=== PATIENT | female | born 1970 | race Caucasian/White ===

== ENCOUNTER 2022-01-28 01:24 | Day surgery (SDC) | payer MEDICARE, SELFPAY ==
[2022-01-21 11:10] VITALS: BMI 28.0
--- NOTE | 2022-01-27 15:20 | PM.HPGS ---
History of Present Illness History of Present Illness Consent: Risks, benefits, and alternatives have been discussed and questions answered. Patient agrees to proceed with procedure. Chief complaint: neoplasm screening, GERD Narrative: Rosana Rangel is a 51 year old female Who has been taking omeprazole for about 30 years and in fact is using it twice a day.? She recalls initially she was placed on it because she was found to have an ulcer. ? her most recent symptoms are the fact that she will at times regurgitate food even hours after she has ingested it.? Also, she has been having burning pain that will come on suddenly in the upper substernal area or in the back of her throat.? This can be severe and will gradually subside.? Sometimes drinking something like milk will help it.? She has occasional dysphagia, mainly for dry foods that seem to hang up on the way down.?? she has never had a colonoscopy. Review of Systems Review of Systems: All systems reviewed & are unremarkable except as noted in HPI and below PMFSH Past Medical History Medical History Anemia Clotting disorder Degenerative joint disease of knee Effusion of knee GERD (gastroesophageal reflux disease) HLD (hyperlipidemia) HTN (hypertension) Hypothyroidism Left knee pain Osteoporosis Peripheral vascular disease Rheumatoid arthritis Right knee pain SOB (shortness of breath) on exertion Wears glasses Surgical History Surgical History History of femoropopliteal bypass Family History Family History Other Arthritis Breast cancer Cerebrovascular accident Depression Diabetes mellitus HLD (hyperlipidemia) Hypertension Lung cancer Neuropathy Ovarian cancer Testicular cancer Social History Social History Smoking status: Never smoker Alcohol intake: never Substance use: never Substance use type: does not use Living arrangements: with family Gender identity (if verbalized by the patient): Female Spiritual care concerns: No Meds Home Medications and Allergies Home Medications Medication Instructions Recorded Confirmed Type losartan 25 mg tablet 25 mg PO DAILY 11/30/21 01/21/22 History atorvastatin 10 mg PO DAILY 12/15/21 01/21/22 History cholecalciferol (vitamin D3) 1,250 1,250 mcg PO WEEKLY 12/15/21 01/21/22 History mcg (50,000 unit) capsule hydroxychloroquine 200 mg tablet 200 mg PO BID 12/15/21 01/21/22 History metformin 500 mg PO BID 12/15/21 01/21/22 History metoprolol succinate 25 mg PO DAILY 12/15/21 01/21/22 History omeprazole 40 mg PO BID 12/15/21 01/21/22 History prednisone 5 mg tablet 5 mg PO .prn PRN FLARE UPS 12/15/21 01/21/22 History rivaroxaban 20 mg tablet (Xarelto) 20 mg PO DAILY 12/15/21 01/21/22 History semaglutide [Ozempic] 0.5 mg subcut WEEKLY 12/15/21 01/21/22 History amitriptyline 25 mg tablet 75 mg PO HS 01/21/22 01/21/22 History aspirin 81 mg tablet 81 mg PO DAILY 01/21/22 01/21/22 History calcium carbonate 600 mg-vitamin 1 tablet PO TID 01/21/22 01/21/22 History D3 10 mcg (400 unit) tablet (Calcium with Vitamin D) conj estrogen-medroxyprogesterone 1 tablet PO DAILY 01/21/22 01/21/22 History 0.3 mg-1.5 mg tablet (Prempro) gabapentin 300 mg capsule See Rx Instructions .Route .COMPLEX 01/21/22 01/21/22 History levothyroxine 112 mcg tablet 112 mcg PO DAILY 01/21/22 01/21/22 History multivitamin with minerals-folic 1 tablet PO DAILY 01/21/22 01/21/22 History acid 0.4 mg tablet Allergies Allergy/AdvReac Type Severity Reaction Status Date / Time infliximab [From Remicade] Allergy Intermediate Rash Verified 01/28/22 06:56 abatacept [From Orencia] Allergy drops b/p Verified 01/28/22 06:56 leflunomide [From Arava] Allergy Rash Verified 01/28/22 06:56 Exam Const: G
[2022-01-28 06:57] VITALS: BP 128/83; PULSE 101; RESP 16; TEMP 36.1; O2SAT 100; BMI 24.2
[2022-01-28] MEDS: LACTATED RINGERS 1,000 ML 150 ML IV CONT (07:11)
[2022-01-28 07:39] LABS: Glucose Point of Care 93 mg/dl (65-105)
--- NOTE | 2022-01-28 07:59 | WPDANESEPPF ---
Anes - Initial Pre Proc Eval Procedure: Operation Date: 01/28/22 08:00 Proposed Procedures p Esophagogastroduodenoscopy & Screening Colonoscopy - Talib Hale MD Date/Time: 01/28/22 07:59 Surgeon: Talib Hale MD Pre Op Diagnosis: neoplasm screening, GERD Patient Data Age: 51 Gender: F Height: 1.75 m Weight: 74.4 kg Last Vital Signs Temp 97 F L 01/28/22 06:57 Pulse 101 H 01/28/22 06:57 Resp 16 01/28/22 06:57 BP 128/83 01/28/22 06:57 Pulse Ox 100 01/28/22 06:57 O2 Del Method Room Air 01/28/22 06:57 Allergies Allergy/AdvReac Type Severity Reaction Status Date / Time infliximab [From Remicade] Allergy Intermediate Rash Verified 01/28/22 06:56 abatacept [From Orencia] Allergy drops b/p Verified 01/28/22 06:56 leflunomide [From Arava] Allergy Rash Verified 01/28/22 06:56 Home Medications Medication Instructions Recorded Confirmed Type losartan 25 mg tablet 25 mg PO DAILY 11/30/21 01/21/22 History atorvastatin 10 mg PO DAILY 12/15/21 01/21/22 History cholecalciferol (vitamin D3) 1,250 1,250 mcg PO WEEKLY 12/15/21 01/21/22 History mcg (50,000 unit) capsule hydroxychloroquine 200 mg tablet 200 mg PO BID 12/15/21 01/21/22 History metformin 500 mg PO BID 12/15/21 01/21/22 History metoprolol succinate 25 mg PO DAILY 12/15/21 01/21/22 History omeprazole 40 mg PO BID 12/15/21 01/21/22 History prednisone 5 mg tablet 5 mg PO .prn PRN FLARE UPS 12/15/21 01/21/22 History rivaroxaban 20 mg tablet (Xarelto) 20 mg PO DAILY 12/15/21 01/21/22 History semaglutide [Ozempic] 0.5 mg subcut WEEKLY 12/15/21 01/21/22 History amitriptyline 25 mg tablet 75 mg PO HS 01/21/22 01/21/22 History aspirin 81 mg tablet 81 mg PO DAILY 01/21/22 01/21/22 History calcium carbonate 600 mg-vitamin 1 tablet PO TID 01/21/22 01/21/22 History D3 10 mcg (400 unit) tablet (Calcium with Vitamin D) conj estrogen-medroxyprogesterone 1 tablet PO DAILY 01/21/22 01/21/22 History 0.3 mg-1.5 mg tablet (Prempro) gabapentin 300 mg capsule See Rx Instructions .Route .COMPLEX 01/21/22 01/21/22 History levothyroxine 112 mcg tablet 112 mcg PO DAILY 01/21/22 01/21/22 History multivitamin with minerals-folic 1 tablet PO DAILY 01/21/22 01/21/22 History acid 0.4 mg tablet Laboratory Tests 01/28/22 07:10 POC Capillary Glucose 93 mg/dl mg/dl (65-105) Patient hx anesthesia problems: none Family hx anesthesia problems: none Results Review: All pre-operative results and documents have been reviewed as part of the pre-operative evaluation. [facility] Past Medical History Medical History Anemia Clotting disorder Degenerative joint disease of knee Effusion of knee GERD (gastroesophageal reflux disease) HLD (hyperlipidemia) HTN (hypertension) Hypothyroidism Left knee pain Osteoporosis Peripheral vascular disease Rheumatoid arthritis Right knee pain SOB (shortness of breath) on exertion Wears glasses Surgical History Surgical History History of femoropopliteal bypass Family History Family History Other Arthritis Breast cancer Cerebrovascular accident Depression Diabetes mellitus HLD (hyperlipidemia) Hypertension Lung cancer Neuropathy Ovarian cancer Testicular cancer Social History Social History Smoking status: Never smoker Alcohol intake: never Substance use: never Substance use type: does not use Living arrangements: with family Gender identity (if verbalized by the patient): Female Spiritual care concerns: No Anes - Eval Final PreProcedure Day of Procedure 01/28/22 07:59 Patient weight: normal Heart: regular rate and rhythm Lungs: clear to auscultation Airway: Mallampati scale class II Neurological: alert and oriented Last oral intake: >/
--- NOTE | 2022-01-28 08:38 | SUR.OPER ---
EGD START 809, END 813 COLONOSCOPY START 822, END 835
[2022-01-28 08:39] VITALS: BP 87/63; PULSE 82; RESP 22; O2SAT 95
[2022-01-28 08:49] VITALS: BP 88/57; PULSE 80; RESP 21; O2SAT 95
[2022-01-28 08:53] VITALS: BP 104/63; PULSE 83; RESP 20; O2SAT 100
== END 2022-01-28 09:19 | disposition home or self-care (01) ==
PROVIDERS: PCP Family Medicine; Visit Provider Internal Medicine Gastroenterology
PROC: 0DJ08ZZ Inspection of Upper Intestinal Tract, Via Natural or Artificial Opening Endoscopic (ICD-10-PCS; CPT 43235; principal; 2022-01-28 08:00)
DX: Z12.11 Encounter for screening for malignant neoplasm of colon (principal); K62.1 Rectal polyp; K64.8 Other hemorrhoids; K21.9 Gastro-esophageal reflux disease without esophagitis; K44.9 Diaphragmatic hernia without obstruction or gangrene; K31.7 Polyp of stomach and duodenum; Z79.01 Long term (current) use of anticoagulants; Z79.82 Long term (current) use of aspirin; Z79.84 Long term (current) use of oral hypoglycemic drugs; D64.9 Anemia, unspecified; M81.0 Age-related osteoporosis without current pathological fracture; I10 Essential (primary) hypertension; E78.5 Hyperlipidemia, unspecified; M06.9 Rheumatoid arthritis, unspecified; I73.9 Peripheral vascular disease, unspecified; R11.10 Vomiting, unspecified; R13.10 Dysphagia, unspecified
CPT/HCPCS: 45380; 43239; 43251; 82948; 87081; 88305; J2704; J7120

== ENCOUNTER 2022-03-18 07:22 | Outpatient (CLI) | payer MEDICARE, MEDICAID, SELFPAY ==
--- NOTE | ~2022-03-18 | CT_ITS ---
EXAMINATION: CTA abd aorta runoff DATE: 03/18/2022 08:00 INDICATION: Claudication, lower extremity pain TECHNIQUE: Computed tomographic angiography (CTA) of the abdomen, pelvis, and both lower extremities was performed with 150 mL Omnipaque-350 intravenous contrast. The dose-length product (DLP) was 923.1 4 mGy-cm. Maximum intensity projection 3D-reconstructions of the arteries were created by the technol erik on a separate workstation. Automated exposure control and iterative reconstruction technique we re employed. COMPARISON: None. FINDINGS: ABDOMINAL AORTA AND ITS BRANCHES: The celiac axis, superior mesenteric artery, and inferior mesenteric artery are normal at their origi ns. There is a single renal artery on the left. There are two renal arteries on the right. There is c alcified atherosclerosis of the aorta without aneurysm or dissection. PELVIC VASCULATURE: The left internal iliac artery is essentially occluded just beyond its origin with areas of distal re constitution. There is otherwise atherosclerosis without hemodynamically significant stenosis. RIGHT LOWER EXTREMITY VASCULATURE: The common femoral and femoral arteries are normal. There is calcified atherosclerosis of the superfi cial femoral artery without hemodynamically significant stenosis. Timing of contrast limits evaluatio n of the distal lower extremity vessels. There appears to be calcified atherosclerosis without signif icant stenosis of the popliteal artery and tibial peroneal trunk. There are are areas of calcified at herosclerosis with severe stenosis in the anterior tibial artery. The posterior tibial and peroneal a rteries demonstrate a few areas of mild atherosclerosis without hemodynamically significant stenosis. There is a three-vessel runoff at the ankle. LEFT LOWER EXTREMITY VASCULATURE: The common femoral and femoral arteries are normal. There is calcified atherosclerosis of the superfi cial femoral artery. There is abrupt cut off of the mid/distal superficial femoral artery approximate ly 15 cm above the knee with adjacent surgical clips noted. The popliteal artery is not opacified. Th e proximal portion of the anterior tibial artery is not opacified. There is reconstituted flow at the origins of the posterior tibial and peroneal arteries the peroneal artery demonstrates a short segme nt of occlusion just beyond its origin with reconstitution. There is a three-vessel runoff at the ank le. ADDITIONAL FINDINGS: Minimal dependent atelectasis is present in the lung bases. The heart size is normal. There is a mode rate-sized sliding hiatal hernia. There is a 14 cm cyst of the liver. Mass effect results in mild int rahepatic biliary dilatation in liver segments II and III. The spleen, pancreas, and adrenal glands a re normal. The gallbladder is surgically absent. There is a lobular contour the kidneys. An IVC filte r is noted. No pathologically enlarged abdominal or pelvic lymph nodes are identified. There is no fr ee intraperitoneal gas or evidence of bowel obstruction. There are large knee joint effusions. There is severe osteoarthritis of the knees. Changes of talocalcaneal fusion are noted on the right and mert onavicular fusion on the left. IMPRESSION: 1. Peripheral vascular disease as detailed above. Reviewed, dictated and finalized at location F. 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
[2022-03-18 07:47] LABS: Estimated Glomerular Filt Rate 43
== END 2022-03-18 07:23 | disposition home or self-care (01) ==
PROVIDERS: PCP Family Medicine
DX: I70.213 Atherosclerosis of native arteries of extremities with intermittent claudication, bilateral legs (principal)
CPT/HCPCS: 75635; Q9967

== ENCOUNTER 2022-03-26 09:10 | Outpatient (CLI) | payer MEDICARE, MEDICAID, SELFPAY ==
--- NOTE | 2022-03-26 09:38 | ECG_ITS ---
Measurements Intervals [place] Rate: 75 P: 55 MI: 150 QRS: 35 QRSD: 100 T: 33 QT: 390 QTc: 437 Interpretive Statements SINUS RHYTHM WITH SINUS ARRHYTHMIA INCOMPLETE RIGHT BUNDLE BRANCH BLOCK BORDERLINE ECG NO PREVIOUS ECG AVAILABLE FOR COMPARISON Electronically Signed On 03-26-2022 10:00:40 STRE[address] AND BUILDING DECORATOR by Aldo Ross D.O.
[2022-03-26 09:41] LABS: Basophils Absolute Auto 0.1 K/mm3 (0.0-0.1); Basophils Percent Auto 0.6 % (0.2-1.2); Eosinophils Absolute Auto 0.3 K/mm3 (0-0.3); Eosinophils Percent Auto 3.4 % (0-4.4); Hematocrit 40.5 % (37.0-47.0); Hemoglobin 12.9 g/dL (12.0-15.0); Immature Granulocyte Absolute 0.03 K/mm3 (0.00-0.031); Immature Granulocyte Percent A 0.3 % (0-0.5); Lymphocytes Absolute Auto 1.96 K/mm3 (0.9-3.2); Lymphocytes Percent Auto 22.4 % (18.3-44.2); Mean Corpuscular HGB Conc 31.9 g/dl (32-36); Mean Corpuscular Volume 84.9 fl (80-100); Mean Platelet Volume 10.8 fl (7.4-10.4); Monocytes Absolute Auto 0.5 K/mm3 (0.1-0.6); Monocytes Percent Auto 5.6 % (2.6-8.5); Neutrophils Absolute Auto 5.9 K/mm3 (1.3-6.7); Neutrophils Percent Auto 67.7 % (45.5-73.1); Platelet Count Result 367 k/mm3 (150-375); Red Blood Count 4.77 M/mm3 (4.2-5.4); Red Cell Distribution Width 17.7 % (11.5-14.5); White Blood Count 8.7 K/mm3 (4.5-10.0)
[2022-03-26 09:46] LABS: Anion Gap 12 mmol/L (8-16); Blood Urea Nitrogen 17 mg/dL (7-17); Calcium 8.8 mg/dL (8.4-10.2); Carbon Dioxide 22 mmol/L (22-30); Chloride 111 mmol/L (98-107); Estimated Glomerular Filt Rate 52; Glucose 87 mg/dL (65-110); Potassium 3.8 mmol/L (3.4-5.0); Sodium 145 mmol/L (137-145)
[2022-03-26 11:12] LABS: Appearance Urine Clear (Clear); Bilirubin Urine Negative (Negative); Blood Urine Negative (Negative); Color Urine Yellow (Yellow); Glucose Urine UA Negative (Negative); Ketones Urine Negative (Negative); Leukocyte Esterase Ur Negative LEU/UL (Negative); Nitrate Urine Negative (Negative); Protein Urine Negative (Negative); Urobilinogen Urine 0.2 mg/dL (<2.0)
[2022-03-26 11:14] LABS: Add Urine Microscopic? NO
== END 2022-03-26 09:11 | disposition home or self-care (01) ==
PROVIDERS: PCP Family Medicine; Visit Provider Orthopaedic Surgery
DX: M17.11 Unilateral primary osteoarthritis, right knee (principal); I45.19 Other right bundle-branch block
CPT/HCPCS: 36415; 80048; 81003; 85025; 93005

== ENCOUNTER 2022-06-01 09:48 | Outpatient (CLI) | payer MEDICARE, MEDICAID, SELFPAY ==
[2022-06-01 12:45] LABS: Basophils Absolute Auto 0.1 K/mm3 (0.0-0.1); Basophils Percent Auto 0.5 % (0.2-1.2); Eosinophils Absolute Auto 0.4 K/mm3 (0-0.3); Eosinophils Percent Auto 4.1 % (0-4.4); Hematocrit 41.2 % (37.0-47.0); Hemoglobin 12.5 g/dL (12.0-15.0); Immature Granulocyte Absolute 0.05 K/mm3 (0.00-0.031); Immature Granulocyte Percent A 0.5 % (0-0.5); Lymphocytes Absolute Auto 1.05 K/mm3 (0.9-3.2); Lymphocytes Percent Auto 9.9 % (18.3-44.2); Mean Corpuscular HGB Conc 30.3 g/dl (32-36); Mean Corpuscular Hemoglobin 26.5 pg (26-34); Mean Corpuscular Volume 87.5 fl (80-100); Mean Platelet Volume 10.9 fl (7.4-10.4); Monocytes Absolute Auto 0.8 K/mm3 (0.1-0.6); Monocytes Percent Auto 7.6 % (2.6-8.5); Neutrophils Absolute Auto 8.3 K/mm3 (1.3-6.7); Neutrophils Percent Auto 77.4 % (45.5-73.1); Platelet Count Result 543 k/mm3 (150-375); Red Blood Count 4.71 M/mm3 (4.2-5.4); Red Cell Distribution Width 15.5 % (11.5-14.5); White Blood Count 10.7 K/mm3 (4.5-10.0)
[2022-06-01 12:48] LABS: Appearance Urine Clear (Clear); Bilirubin Urine Negative (Negative); Blood Urine Negative (Negative); Color Urine Yellow (Yellow); Glucose Urine UA Negative (Negative); Ketones Urine Negative (Negative); Leukocyte Esterase Ur 1+ LEU/UL (Negative); Nitrate Urine Negative (Negative); Protein Urine Negative (Negative); Urobilinogen Urine 0.2 mg/dL (<2.0)
[2022-06-01 12:55] LABS: INR 1.1; Prothrombin Time 13.5 Seconds (11.1-14.7); Urine Cotinine NEGATIVE
[2022-06-01 12:56] LABS: Bacteria Urine Trace /hpf; Partial Thromboplastin Time 30.1 SECONDS (22.3-36.8); RBC Urine 0-2 /hpf (0-2); Squamous Epithelial Cell Urine Moderate /hpf (Few)
[2022-06-01 12:58] LABS: Albumin Level 3.9 g/dL (3.5-5.1); Anion Gap 8 mmol/L (8-16); Blood Urea Nitrogen 12 mg/dL (7-17); Calcium 8.9 mg/dL (8.4-10.2); Carbon Dioxide 28 mmol/L (22-30); Chloride 102 mmol/L (98-107); Estimated Glomerular Filt Rate > 60; Glucose 80 mg/dL (65-110); Potassium 3.8 mmol/L (3.4-5.0); Sodium 138 mmol/L (137-145)
[2022-06-01 13:51] LABS: Add Urine Microscopic? YES
== END 2022-06-01 09:49 | disposition home or self-care (01) ==
LOC: ANHSURGERY 09:55
PROVIDERS: PCP Family Medicine; Visit Provider Orthopaedic Surgery
DX: Z01.812 Encounter for preprocedural laboratory examination (principal); M17.10 Unilateral primary osteoarthritis, unspecified knee
CPT/HCPCS: 80048; 80307; 81001; 82040; 83036; 85025; 85610; 85730; 87081

== ENCOUNTER 2022-06-17 14:38 | Observation (INO) | payer MEDICARE, MEDICAID, SELFPAY ==
--- NOTE | 2022-06-01 09:47 | PC.NURSE ---
Addendum entered by Ivonne Duarte RN 06/01/22 10:47: PT AWARE OF TOTAL JOINT CLASS 05/03/22 @ 1000 AM [facility] Original Note: PRE-OP INSTRUCTIONS, PLEASE READ CAREFULLY Report to the Outpatient Waiting Room, entrance under the green pavilion located off [facility], at time _0830_ on date _06/16/22_. Planned Procedure Time: _1030_. PACK A SMALL OVERNIGHT BAG AND LEAVE IN THE CAR ALONG WITH YOUR WALKER Time changes happen often and if your time is changed the preop area will call you the afternoon before. - You and your visitor will be asked to self-screen and do not enter if you have any COVID symptoms. - Only one visitor is requested with a max of two and NO children visitors are allowed at this time. - The patient visitor may be requested to leave or wait in car when not with patient due to distancing restrictions. - A mask is optional within the hospital at this time. -VISITING HOURS 8AM-8PM, LIMITED TO 2 VISITORS AT A TIME Patients may have clear liquids (water, carbonated beverages, clear teas, apple juice) until 3 hours prior to surgery (0730 AM) with a maximum of 20 ounces. - No food from midnight until time of surgery Take the following medications with a SIP of water the morning of surgery: _GABAPENTIN, LEVOTHYROXINE, METOPROLOL, PREDNISONE IF NEEDED_ DO NOT STOP ANY OF YOUR OTHER PRESCRIPTION MEDICATIONS PRIOR TO SURGERY ?EXCEPT THE FOLLOWING Medications to discontinue per DR. ENCARNACION'S INSTRUCTIONS - _ASPIRIN, XARELTO_ Medications to discontinue per ANESTHESIA - _MULTIVITAMIN 3 DAYS PRIOR TO SURGERY, Date to take last dose 06/12/22_ Please no make-up, nail yi, hairspray, perfume, deodorant, or body powder the day of surgery. No jewelry (including any body piercings) or valuables the day of surgery, leave them at home. Please take a shower or bath the night before, or the morning of, surgery with an antibacterial soap. Wear comfortable, loose fitting clothing. - Jewelry must be removed prior to entering the operating room. Rings and piercings that are not removed may be cut off. - The hospital will not accept responsibility for valuables. - Please leave all valuables, including medications, at home the day of surgery. If you are going home after surgery, a licensed [facility] driver must drive you home. - NO public transportation without another adult if you receive anesthesia. - We recommend that an adult stay with you for 24 hours following discharge. - We also recommend that you do not drive, make important decision, drink alcoholic beverages, or take any drugs that were not prescribed by your health care provider for at least 24 hours after your discharge time. Follow any additional instructions given to you from your surgeon. If you or anyone in your household have experienced Covid symptoms in the past week, please notify your surgeon or the nurse liaison at the phone number below for possible testing. Instructions given to _PATIENT_and asked if any additional questions and then verbalized understanding. Patient advised to call surgeon office or pre surgery nurse liaison [phone] if any additional questions.
[2022-06-01 10:06] VITALS: BP 124/80; PULSE 100; RESP 18; TEMP 36.8; O2SAT 97; BMI 24.9
[2022-06-16] VITALS (14 sets, daily range): BP systolic 114–149; BP diastolic 70–97; PULSE 66–106; RESP 12–24; TEMP 36.1–36.7; O2SAT 98–100
--- NOTE | 2022-06-16 07:21 | WPDHPUPDATE1 ---
History and Physical Update Update Date/Time: 06/16/22 07:21 History and Physical has been reviewed, including an updated exam of the patient. There are NO changes in the patient's condition. Risks, benefits, and alternatives have been discussed and questions answered. Patient agrees to proceed with procedure.
[2022-06-16] MEDS: ACETAMINOPHEN 500 MG TABLET 1000 MG PO (09:11)
[2022-06-16] MEDS: LACTATED RINGERS 1,000 ML 30 ML IV CONT ×2 (09:19→13:20)
[2022-06-16 09:24] LABS: Glucose Point of Care 98 mg/dl (65-105)
--- NOTE | 2022-06-16 09:28 | WPDANESEPPF ---
Anes - Initial Pre Proc Eval Procedure: Operation Date: 06/16/22 10:30 Proposed Procedures p Right Total Knee Arthroplasty - Saran Klein MD Date/Time: 06/16/22 09:28 Surgeon: Saran Klein MD Pre Op Diagnosis: right knee DJD Patient Data Age: 52 Gender: F Height: 1.75 m Weight: 76.5 kg Last Vital Signs Temp 36.8 C 06/01/22 10:06 Pulse 100 06/01/22 10:06 Resp 18 06/01/22 10:06 BP 124/80 06/01/22 10:06 Pulse Ox 97 06/01/22 10:06 O2 Del Method Room Air 06/01/22 10:06 Allergies Allergy/AdvReac Type Severity Reaction Status Date / Time infliximab [From Remicade] Allergy Intermediate Rash Verified 06/16/22 08:41 abatacept [From Orencia] Allergy drops b/p Verified 06/16/22 08:41 leflunomide [From Arava] Allergy Rash Verified 06/16/22 08:41 Home Medications Medication Instructions Recorded Confirmed Type losartan 25 mg tablet 25 mg PO DAILY 11/30/21 06/16/22 History atorvastatin 10 mg PO DAILY 12/15/21 06/16/22 History cholecalciferol (vitamin D3) 1,250 1,250 mcg PO WEEKLY 12/15/21 06/16/22 History mcg (50,000 unit) capsule metformin 500 mg PO BID 12/15/21 06/16/22 History metoprolol succinate 25 mg PO DAILY 12/15/21 06/16/22 History omeprazole 40 mg PO BID 12/15/21 06/16/22 History prednisone 5 mg tablet 5 mg PO .prn PRN RA FLAIR UP 12/15/21 06/16/22 History rivaroxaban 20 mg tablet (Xarelto) 20 mg PO DAILY 12/15/21 06/16/22 History semaglutide [Ozempic] 0.5 mg subcut WEEKLY 12/15/21 06/16/22 History amitriptyline 25 mg tablet 75 mg PO HS 01/21/22 06/16/22 History aspirin 81 mg tablet 81 mg PO DAILY 01/21/22 06/16/22 History calcium carbonate 600 mg-vitamin 1 tablet PO TID 01/21/22 06/16/22 History D3 10 mcg (400 unit) tablet (Calcium with Vitamin D) conj estrogen-medroxyprogesterone 1 tablet PO DAILY 01/21/22 06/16/22 History 0.3 mg-1.5 mg tablet (Prempro) gabapentin 300 mg capsule See Rx Instructions .Route .COMPLEX 01/21/22 06/16/22 History multivitamin with minerals-folic 1 tablet PO DAILY 01/21/22 06/16/22 History acid 0.4 mg tablet hydroxychloroquine 200 mg tablet 400 mg PO DAILY 04/13/22 06/16/22 History levothyroxine 100 mcg tablet 100 mcg PO DAILY 06/01/22 06/16/22 History (Synthroid) chlorhexidine gluconate 4 % 1 applic topical ONCE #237 mL 06/03/22 06/16/22 Rx topical liquid (Hibiclens) Laboratory Tests 06/16/22 09:22 POC Capillary Glucose 98 mg/dl mg/dl (65-105) Patient hx anesthesia problems: none Family hx anesthesia problems: none Results Review: All pre-operative results and documents have been reviewed as part of the pre-operative evaluation. [facility] Past Medical History Medical History Anemia Clotting disorder Degenerative joint disease of knee Effusion of knee GERD (gastroesophageal reflux disease) HLD (hyperlipidemia) HTN (hypertension) Hypothyroidism Left knee pain Osteoporosis Peripheral vascular disease Rheumatoid arthritis Right knee pain SOB (shortness of breath) on exertion Wears glasses Surgical History Surgical History (Updated 06/16/22 @ 09:31 by Fritz Padilla MD) History of femoropopliteal bypass S/P cervical spinal fusion Family History Family History Other Arthritis Breast cancer Cerebrovascular accident Depression Diabetes mellitus HLD (hyperlipidemia) Hypertension Lung cancer Neuropathy Ovarian cancer Testicular cancer Social History Social History Smoking status: Never smoker Second hand tobacco smoke exposure: No Additional smoking assessment comments: PT DENIES ALL FORMS OF TOBACCO USE Alcohol intake: never Substance use: never Substance use type: does not use Living arrangements: alone Gender identity (if verbalized by the patient): Female Spiritual care concerns: No
--- NOTE | 2022-06-16 10:00 | WPDANESPNB ---
Anes - Peripheral Nerve Block Date/Time: 06/16/22 10:00 I have discussed with the patient/family/POA the placement of a peripheral nerve block for post-operative pain management, including associated risks, benefits, complications, and side effects. Alternative methods of post-operative analgesia were detailed. Questions were solicited and answers provided to the satisfaction of the patient/family/POA. Time-Out: A pre-procedural Time-Out was completed immediately before starting the procedure and confirmed: Patient Identification, Site, Procedure, Patient Position and the Availability of Requisite Equipment. Clinical Indications: Acute post-operative pain management requested by the operative surgeon. Nerve Block Insertion Note Anes-nerve block: femoral right Patient position: supine Skin prep: chlorhexidine Needle: 22 gauge, stimulating, insulated echogenic needle. Needle length: 50 mm Technique: nerve stimulation lost at (mA) (0.35) Injectate: bupivacaine 0.5% with epi 5 mcg/ml (20cc ) Observations: tolerated well Complications: none Procedure start time:: 954 Procedure end time:: 958
[2022-06-16] MEDS: TRANEXAMIC ACID 1,000MG/ISO100 1,000 MG/100 ML BAG 200 MG IVPB (10:10)
[2022-06-16] MEDS: ceFAZolin 2 GM/D5W 50 ML 2 GM/50 ML BAG IVPB ×2 (10:27→18:40)
[2022-06-16] MEDS: GENTAMICIN BONE CEMENT REFOBACIN 1 EACH TOPICAL (11:07)
[2022-06-16] MEDS: TRANEXAMIC ACID 1,000 MG/10 ML AMPUL 1000 MG IV PUSH (12:19)
--- NOTE | 2022-06-16 13:40 | W.PM.PROC2 ---
Procedure Note - Detailed Date of Procedure 06/16/22 Pre-op Diagnosis right knee DJD Post-op Diagnosis Same Procedure Performed R TKA Surgeon Saran Klein MD Anesthesia General Description of Procedure THE RIGHT KNEE WAS PREPPED AND DRAPED IN THE STERILE FASHION. A MIDLINE SKIN INCISION WAS MADE. A MEDIAL PARAPATELLAR ARTHROTOMY WAS MADE. THE PATELLA WAS EVERTED. THERE WAS TRICOMPARTMENT DJD. THE KNEE WAS PLACED IN FLEXION. THE TOURNIQUET WAS DEFLATED. AN INTRAMEDULLARY LUDMILA WAS PLACED IN THE FEMUR. A DISTAL FEMORAL CUT WAS MADE IN 5 DEGREES OF VALGUS REMOVING APPROXIMATELY 9 MM OF BONE FROM THE DISTAL FEMUR. THE FEMUR WAS SIZED TO 72.5. A 72.5 FEMORAL CUTTING BLOCK WAS PLACED IN 3 DEGREES OF EXTERNAL ROTATION AND IN ALIGNMENT WITH XU'S LINE AND THE TRANSEPICONDYLAR AXIS. ANTERIOR POSTERIOR AND CHAMFER CUTS WERE MADE. THE CUTS WERE EXCELLENT. NEXT AN INTRAMEDULLARY CUTTING GUIDE WAS PLACED IN THE TIBIA. A TRANS TIBIAL CUT WAS MADE ALONG THE LONG AXIS OF THE TIBIA. APPROXIMATELY 10 MM OF BONE WAS REMOVED FROM THE HIGH SIDE OF THE TIBIA. THE TIBIA WAS THEN PLANED TO A SMOOTH SURFACE. POSTERIOR FEMORAL OSTEOPHYTES WERE REMOVED FROM THE FEMORAL CONDYLES. A 79 TIBIAL TRIAL WAS PLACED IN ALIGNMENT WITH THE 1/3 MEDIAL ASPECT OF THE TIBIAL TUBERCLE. THEN A 72.5 FEMORAL TRIAL COMPONENT WAS PLACED. BOTH HAD EXCELLENT FITS. EVENTUALLY A 14 MM POLYETHYLENE TRIAL COMPONENT WAS PLACED. THE KNEE WAS TAKEN THROUGH A RANGE OF MOTION. THE KNEE CAME OUT TO FULL EXTENSION. THERE WAS NO ABNORMAL TILT TO THE PATELLA. THERE WAS GOOD A/P AND VARUS/VALGUS STABILITY. THERE WAS NO EXCESSIVE ROLL BACK WITH FLEXION. THE TRIAL COMPONENTS WERE REMOVED. THE TOURNIQUET WAS INFLATED. THE BONY SURFACES WERE LAVAGED UNTIL THERE WAS GOOD CEMENTING SURFACE WITH GOOD TRABECULAR BONE VISIBLE. THEN A 72.5 FEMORAL COMPONENT AND 79 TIBIAL COMPONENT WITH A 14 POLYETHYLENE COMPONENT WERE CEMENTED INTO PLACE. ONCE THE CEMENT WAS HARD THE KNEE WAS TAKEN THROUGH A ROM AGAIN AND FOUND TO BE STABLE WITH NO PATELLA TILT NO EXCESSIVE ROLL BACK WITH FLEXION AND GOOD STABILITY WITH COMPLETE AND FULL EXTENSION. THE TOURNIQUET WAS DEFLATED AGAIN. THE KNEE WAS IRRIGATED WITH STERILE BETADINE AND WATER FOR ABOUT 3 MINUTES. THE BLEEDERS WERE CAUTERIZED. THE ARTHROTOMY WAS REPAIRED WITH NUMBER 1 VICRYL. THE SUB CUTANEOUS LAYER WITH 2-0 VICRYL AND THE SKIN WITH DEMI. THE WOUND WAS WASHED AND A STERILE DRESSING WAS APPLIED. PATIENT WAS EXTUBATED. Estimated Blood Loss -650.0 Pathology None sent Complications No immediate complications Condition Stable Disposition PACU
[2022-06-16] MEDS: fentaNYL CITRATE INJ (*CRX) 100 MCG/2 ML VIAL 25 MCG IV PUSH ×8 (13:47→14:16)
[2022-06-16] MEDS: diphenhydrAMINE HCl INJ 50 MG/ML VIAL 25 MG IV PUSH (14:16)
[2022-06-16 14:28] LABS: Glucose Point of Care 131 mg/dl (65-105)
[2022-06-16] MEDS: oxyCODONE/ACETAMINOPHEN (*CRX) 5-325 MG TABLET 2 TABLET PO (16:06)
[2022-06-16] MEDS: SODIUM CHLORIDE 0.9% IV 1,000 ML 125 ML IV CONT (16:51)
[2022-06-16] MEDS: ATORVASTATIN 10 MG TABLET PO (16:56)
[2022-06-16] MEDS: HYDROXYCHLOROQUINE SULFATE 200 MG TABLET 400 MG PO (16:57)
[2022-06-16] MEDS: LEVOTHYROXINE SODIUM 100 MCG TABLET PO (16:58)
[2022-06-16] MEDS: LOSARTAN POTASSIUM 25 MG TABLET PO (16:58)
[2022-06-16] MEDS: METOPROLOL SUCCINATE EXT REL 25 MG TABCR PO (16:59)
[2022-06-16] MEDS: KETOROLAC 15 MG/ML VIAL (*BKC) IV PUSH (17:00)
[2022-06-16] MEDS: SENNA/DOCUSATE SODIUM TABLET 2 TAB PO (17:01)
[2022-06-16] MEDS: metFORMIN HCL 500 MG TABLET PO (17:02)
[2022-06-16] MEDS: RIVAROXABAN 10 MG TABLET PO (17:03)
[2022-06-16] MEDS: PANTOPRAZOLE 40 MG TABLET PO (17:03)
[2022-06-16] MEDS: ERGOCALCIFEROL 50,000 UNITS CAPSULE 50000 UNITS PO (17:04)
[2022-06-16] MEDS: GABAPENTIN 300 MG CAPSULE 600 MG BY MOUTH (21:22)
[2022-06-16] MEDS: AMITRIPTYLINE HCL 25 MG TABLET 75 MG PO (21:23)
--- NOTE | ~2022-06-17 | XR_ITS ---
EXAMINATION: XR knee RT 2V DATE: 06/16/2022 14:04 COLLABORATIVE PHYSICIAN INDICATION: Right knee arthroplasty TECHNIQUE: 2 views right knee FINDINGS: There is a right total knee arthroplasty in expected position. Subcutaneous gas with fluid and air in the joint and overlying skin tushar are consistent with recent surgery. No evidence of p eriprosthetic fracture. IMPRESSION: 1. Recent right total knee arthroplasty. Reviewed, dictated and finalized at location A. ABORATIVE PHYSICIAN
[2022-06-17 00:49] VITALS: BP 121/67; PULSE 73; RESP 16; TEMP 36.4; O2SAT 99
[2022-06-17] MEDS: ceFAZolin 2 GM/D5W 50 ML 2 GM/50 ML BAG IVPB ×2 (01:11→09:18)
[2022-06-17] MEDS: KETOROLAC 15 MG/ML VIAL (*BKC) IV PUSH ×3 (01:11→12:17)
[2022-06-17 05:37] VITALS: BP 118/60; PULSE 72; RESP 16; TEMP 37; O2SAT 96
[2022-06-17] MEDS: LEVOTHYROXINE SODIUM 100 MCG TABLET PO (05:43)
[2022-06-17 06:11] LABS: Basophils Percent Auto 0.2 % (0.2-1.2); Eosinophils Percent Auto 0.2 % (0-4.4); Hematocrit 27.8 % (37.0-47.0); Hemoglobin 8.4 g/dL (12.0-15.0); Immature Granulocyte Absolute 0.15 K/mm3 (0.00-0.031); Immature Granulocyte Percent A 0.9 % (0-0.5); Lymphocytes Absolute Auto 1.07 K/mm3 (0.9-3.2); Lymphocytes Percent Auto 6.3 % (18.3-44.2); Mean Corpuscular HGB Conc 30.2 g/dl (32-36); Mean Corpuscular Hemoglobin 27.1 pg (26-34); Mean Corpuscular Volume 89.7 fl (80-100); Mean Platelet Volume 10.4 fl (7.4-10.4); Monocytes Absolute Auto 1.2 K/mm3 (0.1-0.6); Monocytes Percent Auto 6.8 % (2.6-8.5); Neutrophils Absolute Auto 14.5 K/mm3 (1.3-6.7); Neutrophils Percent Auto 85.6 % (45.5-73.1); Platelet Count Result 310 k/mm3 (150-375); Red Cell Distribution Width 15.6 % (11.5-14.5)
[2022-06-17 06:19] LABS: Anion Gap 3 mmol/L (8-16); Blood Urea Nitrogen 19 mg/dL (7-17); Carbon Dioxide 26 mmol/L (22-30); Chloride 108 mmol/L (98-107); Estimated CRCL calculation 47 ml/min; Estimated Glomerular Filt Rate 43; Glucose 100 mg/dL (65-110); Potassium 4.4 mmol/L (3.4-5.0); Sodium 137 mmol/L (137-145)
[2022-06-17] MEDS: polyethylene glycoL 3350 17 GM POWD.PACK PO (09:04)
[2022-06-17] MEDS: oxyCODONE/ACETAMINOPHEN (*CRX) 5-325 MG TABLET 1 TABLET PO (09:04)
[2022-06-17] MEDS: LOSARTAN POTASSIUM 25 MG TABLET PO (09:04)
[2022-06-17] MEDS: SENNA/DOCUSATE SODIUM TABLET 2 TAB PO ×2 (09:04→17:25)
[2022-06-17] MEDS: ATORVASTATIN 10 MG TABLET PO (09:05)
[2022-06-17] MEDS: metFORMIN HCL 500 MG TABLET PO ×2 (09:05→17:25)
[2022-06-17] MEDS: GABAPENTIN 300 MG CAPSULE 600 MG BY MOUTH ×2 (09:05→21:00)
[2022-06-17] MEDS: HYDROXYCHLOROQUINE SULFATE 200 MG TABLET 400 MG PO (09:05)
[2022-06-17] MEDS: PANTOPRAZOLE 40 MG TABLET PO ×2 (09:06→17:27)
[2022-06-17] MEDS: THERAPEUTIC MULTIVITAMINS/MINERALS TAB (*BKC) 1 TABLET PO (09:09)
[2022-06-17 09:16] VITALS: PULSE 85
[2022-06-17] MEDS: METOPROLOL SUCCINATE EXT REL 25 MG TABCR PO (09:16)
--- NOTE | 2022-06-17 09:25 | WPDANESPN ---
Anes - Prog Note Post-Op Date/Time: 06/17/22 09:25 Cardiovascular status: normal Respiratory status: normal Airway patency: baseline Mental status: baseline Post-Op hydration status: normal Vital Signs: Last Vital Signs Temp 98.6 F 06/17/22 05:37 Pulse 85 06/17/22 09:16 Resp 16 06/17/22 05:37 BP 118/60 06/17/22 05:37 Pulse Ox 96 06/17/22 05:37 O2 Del Method Room Air 06/16/22 21:10 O2 Flow Rate 10 06/16/22 13:50 Pain Score (VAS): 7 I/O: Intake & Output 06/16/22 06/17/22 06/17/22 23:59 07:59 15:59 Intake Total 570 350 Output Total 1470 Balance 570 -1120 Laboratory Tests 06/17/22 05:51 06/17/22 05:51 06/16/22 06/16/22 06/17/22 09:21 14:24 05:51 WBC 17.0 H RBC 3.10 L Hgb 8.4 L D Hct 27.8 L MCV 89.7 MCH 27.1 MCHC 30.2 L RDW 15.6 H Plt Count 310 MPV 10.4 Immature Gran % (Auto) 0.9 H Neut % (Auto) 85.6 H Lymph % (Auto) 6.3 L Finney % (Auto) 6.8 Eos % (Auto) 0.2 Baso % (Auto) 0.2 Lymph # (Auto) 1.07 Finney # (Auto) 1.2 H Eos # (Auto) 0.0 Baso # (Auto) 0.0 Abs Immat Gran (auto) 0.15 H Absolute Neuts (auto) 14.5 H Absolute Nucleated RBC 0.0 Nucleated RBC % 0.0 Sodium Potassium Chloride Carbon Dioxide Anion Gap BUN Creatinine Estim Creat Clear Calc Estimated GFR Glucose POC Capillary Glucose 131 H Calcium Blood Type A Positive Antibody Screen Negative 06/17/22 05:51 WBC RBC Hgb Hct MCV MCH MCHC RDW Plt Count MPV Immature Gran % (Auto) Neut % (Auto) Lymph % (Auto) Finney % (Auto) Eos % (Auto) Baso % (Auto) Lymph # (Auto) Finney # (Auto) Eos # (Auto) Baso # (Auto) Abs Immat Gran (auto) Absolute Neuts (auto) Absolute Nucleated RBC Nucleated RBC % Sodium 137 Potassium 4.4 Chloride 108 H Carbon Dioxide 26 Anion Gap 3 L BUN 19 H Creatinine 1.30 H Estim Creat Clear Calc 47 Estimated GFR 43 L Glucose 100 POC Capillary Glucose Calcium 8.0 L Blood Type Antibody Screen Post-procedural complaints: none Patient Feedback: Patient satisfied with anesthetic care. Other Findings: pain 7 with activity
--- NOTE | 2022-06-17 10:03 | PM.PNORT ---
Progress Note: A&P Assessment and Plan (1) S/P total knee arthroplasty: Code(s): Z96.659 - Presence of unspecified artificial knee joint Status: Acute Assessment and Plan: POD #1 : Right TKA Continue PT/OT. WBAT. Walker. HIGH FALL RISK. Continue pain control. Ice Knee. Protect skin. DVT prophylaxis with Xarelto 10mg. Plan to resume 20mg dose at discharge. SCDs. Incentive Spirometry Use reviewed. Monitor Dressing. Prevena dressing in place. Drain with active drainage in chamber/tube. Will likely pull tomorrow. Bowel Regimen. Dispo: Home with Home Health pending progress with PT/OT likely tomorrow. Recheck CBC overnight. Pull drain in AM. (2) Systemic lupus: Code(s): M32.9 - Systemic lupus erythematosus, unspecified Status: Acute (3) Rheumatoid arthritis: Code(s): M06.9 - Rheumatoid arthritis, unspecified Status: Acute (4) History of femoropopliteal bypass: Code(s): Z98.890 - Other specified postprocedural states Status: Acute (5) Peripheral vascular disease: Code(s): I73.9 - Peripheral vascular disease, unspecified Status: Acute Subjective Subjective Date/Time Seen: 06/17/22 10:03 Post Op day: 1 Interval history: POD #1: Right TKA Patient doing well. Pain well controlled. Up in chair at time of exam. Review of Systems Review of Systems: All systems reviewed & are unremarkable except as noted in HPI and below Constitutional: Constitutional: Denies fever(s) and Denies headache(s) ENT: Denies headache(s) Cardiovascular: Cardiovascular: Denies chest pain, Denies diaphoresis, Denies palpitations and Denies dyspnea Respiratory: Respiratory: Denies dyspnea Gastrointestinal: Gastrointestinal: Denies abdominal pain, Denies constipation, Denies nausea and Denies vomiting Genitourinary: Genitourinary: Reports nocturia and Denies dysuria Musculoskeletal: Musculoskeletal: Reports arthralgias (Right Knee ) and Reports joint swelling (Right Knee ) Neurologic: Denies headache(s) Endocrine: Endocrine: Denies palpitations Exam Const: General: comfortable and no acute distress Resp: Effort & Inspection: normal respiratory effort Cardio: Rate: regular rate Rhythm: regular rhythm GI: GI Palp: Yes Soft to palpation, No Tenderness to palpation present (GI) and No Guarding due to palpation present (GI) Skin: General skin exam: wounds noted Wounds: wounds noted Other: Incision c/d/i. Prevena dressing in place. Drain in place, sanguinous drainage. No surrounding redness/warmth. Mild ecchymosis. Neuro: Cognition (Neuro): normal cognition Other: NV intact aside from block. Moves toes. Sensation intact to light touch. +ankle dorsiflexion/plantarflexion. Extrem: Right lower extremity: normal to inspection, knee Details: tenderness (diffuse, mild ) Location: of the patella, swelling (diffuse, consistent with surgical intervention ), abnormal ROM Details: pain with active ROM during, pain with passive ROM during and with range as follows (limited due to recent surgical intervention ); able to extend lower leg actively and ecchymosis (mild ), lower leg (Negative Zeny's Sign ) Details: normal to inspection; no erythema and no tenderness, ankle (+ankle dorsiflexion/plantarflexion ) Details: normal to inspection, no edema and normal ROM; no tenderness, no swelling and no ecchymosis and foot Details: normal capillary refill, normal to inspection, vascular exam Details: dorsalis pedis pulse present and motor-sensory exam Details: light-touch normal; no tenderness Left lower extremity: normal to inspection Other: Prevena dressing in place. Drain in place. Psych: Mental Status: mental status grossly normal Objective Data Vital Signs Vital Signs: Vital Signs - 24 hr 06/16/22 13:20 06/16/22 13:35 06/16/22 13:50 Temperature 36.2 C L Pulse Rate 106 H 85 80 Respiratory Rate 24 H 12 12 Blood Pressure 136/89 124/86 133/90 Pulse Oximetry 9
[2022-06-17 10:40] VITALS: BP 100/62; PULSE 77; RESP 18; TEMP 36.5; O2SAT 97
[2022-06-17] MEDS: GABAPENTIN 300 MG CAPSULE BY MOUTH (12:17)
[2022-06-17 16:35] VITALS: BP 74/50; PULSE 85; RESP 18; TEMP 36.3; O2SAT 99
[2022-06-17] MEDS: SODIUM CHLORIDE 0.9% IV 500 ML IV CONT (17:25)
[2022-06-17] MEDS: RIVAROXABAN 10 MG TABLET PO (17:27)
[2022-06-17 17:32] LABS: Hematocrit 29.9 % (37.0-47.0); Mean Corpuscular HGB Conc 30.1 g/dl (32-36); Mean Corpuscular Hemoglobin 27.3 pg (26-34); Mean Corpuscular Volume 90.6 fl (80-100); Mean Platelet Volume 10.6 fl (7.4-10.4); Platelet Count Result 358 k/mm3 (150-375); Red Cell Distribution Width 15.9 % (11.5-14.5); White Blood Count 17.8 K/mm3 (4.5-10.0)
[2022-06-17] MEDS: AMITRIPTYLINE HCL 25 MG TABLET 75 MG PO (21:00)
[2022-06-17 21:52] LABS: Hematocrit 26.2 % (37.0-47.0); Hemoglobin 8.1 g/dL (12.0-15.0)
--- NOTE | 2022-06-17 22:00 | WPDCN ---
Assessment and Plan Assessment and plan (1) Degenerative joint disease of right knee: Code(s): M17.11 - Unilateral primary osteoarthritis, right knee Status: Acute Assessment and Plan: Postoperative day 1 status post right total knee arthroplasty. Wound care, pain control, and DVT prophylaxis deferred to Dr. Klein. She is at high risk for DVT given history of venous thromboembolism an autoimmune disease. She is also on hormones. (2) Acute blood loss anemia: Code(s): D62 - Acute posthemorrhagic anemia Status: Acute Assessment and Plan: Patient had 650 cc blood loss during surgery. Her hemoglobin is 4.5 g lower than what it was on labs done several weeks ago. With her soft blood pressures and increasing creatinine, we will go ahead and transfuse a unit of packed red blood cells. (3) Hypotension: Code(s): I95.9 - Hypotension, unspecified Status: Acute Assessment and Plan: Likely due to acute blood loss anemia; she also got her antihypertensives this morning. Plan is as detailed above. (4) Renal failure: Code(s): N19 - Unspecified kidney failure Status: Acute Assessment and Plan: Creatinine is up a bit from baseline (0.90 --> 1.30) and may very well be related to hypoperfusion from hypovolemia and hypotension related to acute blood loss anemia. She is being transfused unit of packed red blood cells. Hold antihypertensives for now. Monitor I/O closely. If no improvement with improvement blood pressures and hemoglobin, further workup will need to be pursued. (5) Hypertension: Code(s): I10 - Essential (primary) hypertension Status: Acute Assessment and Plan: Antihypertensives on hold as detailed above. (6) Type 2 diabetes mellitus: Code(s): E11.9 - Type 2 diabetes mellitus without complications Status: Acute Assessment and Plan: Hemoglobin A1c was 5.4% today. Resume metformin on discharge. (7) Hypothyroidism: Code(s): E03.9 - Hypothyroidism, unspecified Status: Acute Assessment and Plan: Continue levothyroxine and check TSH. (8) Rheumatoid arthritis: Code(s): M06.9 - Rheumatoid arthritis, unspecified Status: Acute Assessment and Plan: Resume hydroxychloroquine. Plan Thank you for allowing us to participate in this patient's care. Please do not hesitate to contact us with any questions. Time spent on consultation: 65 minutes. HPI Data of Consult Date/Time: 06/17/22 22:00 Requesting Physician: Saran Klein MD Consult Narrative Reason for consult: Soft blood pressures postoperatively. Narrative: This is a 52-year-old female with history of rheumatoid arthritis, lupus, peripheral vascular disease, hypertension, hyperlipidemia, type 2 diabetes mellitus, DVT, pulmonary embolism, and other comorbidities whom the hospitalist service has been consulted regarding soft blood pressures. She had an elective right total knee arthroplasty done yesterday per Dr. Klein. Her surgery was performed under general anesthesia with no immediate complications documented and an estimated blood loss of 650 mL. She had evidence of acute blood loss anemia on labs this morning with a hemoglobin of 8.4 (it was 12.5 just a couple of weeks ago) and it was stable on repeat H&H this evening. Her blood pressures this afternoon however have been running low (74/50) and we have been consulted in this setting. She is on losartan 25 mg daily and metoprolol succinate 25 mg daily and she received both of those medications this morning when her blood pressure was well within normal limits. She continues to have soft blood pressures and she feels a bit weak but she has not had any near syncope, palpitations, sensations of racing heart, or significant shortness of breath. Her pain is about an 8/10 which is pretty chronic for her given her rheumatoid arthritis. She has no specific complaints
[2022-06-17 22:02] LABS: Anion Gap 3 mmol/L (8-16); Blood Urea Nitrogen 24 mg/dL (7-17); Calcium 7.8 mg/dL (8.4-10.2); Carbon Dioxide 26 mmol/L (22-30); Chloride 108 mmol/L (98-107); Estimated CRCL calculation 41 ml/min; Estimated Glomerular Filt Rate 36; Glucose 95 mg/dL (65-110); Potassium 4.2 mmol/L (3.4-5.0); Sodium 137 mmol/L (137-145)
[2022-06-17 22:44] LABS: Hemoglobin A1C 5.4 % (<5.7)
[2022-06-18] VITALS (19 sets, daily range): BP systolic 86–106; BP diastolic 45–69; PULSE 77–109; RESP 16–20; TEMP 36.4–37.3; O2SAT 94–100
[2022-06-18] MEDS: SODIUM CHLORIDE 0.9% IV 250 ML 30 ML IV CONT (00:54)
[2022-06-18] MEDS: oxyCODONE/ACETAMINOPHEN (*CRX) 5-325 MG TABLET 2 TABLET PO (04:11)
[2022-06-18] MEDS: LEVOTHYROXINE SODIUM 100 MCG TABLET PO (05:50)
[2022-06-18 06:17] LABS: Hematocrit 26.3 % (37.0-47.0); Hemoglobin 8.4 g/dL (12.0-15.0); Mean Corpuscular HGB Conc 31.9 g/dl (32-36); Mean Corpuscular Hemoglobin 28.3 pg (26-34); Mean Corpuscular Volume 88.6 fl (80-100); Mean Platelet Volume 10.5 fl (7.4-10.4); Platelet Count Result 239 k/mm3 (150-375); Red Blood Count 2.97 M/mm3 (4.2-5.4); Red Cell Distribution Width 15.3 % (11.5-14.5); White Blood Count 13.5 K/mm3 (4.5-10.0)
[2022-06-18 07:08] LABS: Alanine Aminotransferase 9 U/L (6-35); Albumin Level 2.7 g/dL (3.5-5.1); Alkaline Phosphatase 72 U/L (38-126); Anion Gap 2 mmol/L (8-16); Aspartate Amino Transferase 20 U/L (14-36); Bilirubin,Total 0.6 mg/dL (0.2-1.3); Blood Urea Nitrogen 23 mg/dL (7-17); Calcium 7.8 mg/dL (8.4-10.2); Carbon Dioxide 25 mmol/L (22-30); Chloride 110 mmol/L (98-107); Estimated CRCL calculation 44 ml/min; Estimated Glomerular Filt Rate 39; Glucose 103 mg/dL (65-110); Magnesium 1.7 mg/dL (1.6-2.3); Potassium 4.4 mmol/L (3.4-5.0); Sodium 137 mmol/L (137-145)
[2022-06-18 08:36] LABS: Glucose Point of Care 92 mg/dl (65-105)
[2022-06-18] MEDS: ATORVASTATIN 10 MG TABLET PO (08:39)
[2022-06-18] MEDS: SENNA/DOCUSATE SODIUM TABLET 2 TAB PO ×2 (08:39→16:54)
[2022-06-18] MEDS: GABAPENTIN 300 MG CAPSULE 600 MG BY MOUTH (08:40)
[2022-06-18] MEDS: metFORMIN HCL 500 MG TABLET PO ×2 (08:40→16:54)
[2022-06-18] MEDS: PANTOPRAZOLE 40 MG TABLET PO ×2 (08:40→16:54)
[2022-06-18] MEDS: THERAPEUTIC MULTIVITAMINS/MINERALS TAB (*BKC) 1 TABLET PO (08:40)
[2022-06-18] MEDS: ACETAMINOPHEN 500 MG TABLET 1000 MG PO ×2 (08:40→15:17)
[2022-06-18] MEDS: HYDROXYCHLOROQUINE SULFATE 200 MG TABLET 400 MG PO (08:40)
[2022-06-18] MEDS: polyethylene glycoL 3350 17 GM POWD.PACK PO (08:43)
--- NOTE | 2022-06-18 09:31 | PM.PNORT ---
Progress Note: A&P Assessment and Plan (1) S/P total knee arthroplasty: Code(s): Z96.659 - Presence of unspecified artificial knee joint Status: Acute Assessment and Plan: POD #2 : Right TKA Continue PT/OT. WBAT. Walker. HIGH FALL RISK. Continue pain control. Ice Knee. Protect skin. DVT prophylaxis with Xarelto 10mg. Plan to maintain 10mg dose x7 days post op and then resume 20mg dose per Dr. Klein. Repeat CBC at 12:00 PM today and then again on Tuesday by HH. SCDs. Incentive Spirometry Use reviewed. Monitor Dressing. Prevena dressing in place. Drain pulled. Bowel Regimen. Dispo: Home with Home Health pending medical stability and clearance. (2) Acute blood loss anemia: Code(s): D62 - Acute posthemorrhagic anemia Status: Acute Assessment and Plan: Patient received 1 unit of PRBCs overnight. Repeat H/H is 8.4 s/p transfusion. Will repeat CBC at 12:00 PM today. If stable, no further recommendations during inpatient hospitalization. Will also plan for repeat CBC by home health on Tuesday. Xarelto 20mg HELD as of now. Patient will go home on current dose of Xarelto 10mg x7 days and resume 20mg dose on 06/[address] Klein. (3) JANAE (acute kidney injury): Code(s): N17.9 - Acute kidney failure, unspecified Status: Acute Assessment and Plan: Creatinine elevated post operatively. Patient did receive a 500mL bolus yesterday due to hypotension. Consulted with hospitalist service this morning who recommended a repeat bolus as patient does still have hypotension. Will recheck BP 1 hour s/p bolus. (4) Hypotension: Code(s): I95.9 - Hypotension, unspecified Status: Acute Assessment and Plan: Patient continues to have asymptomatic hypotension. Repeat 500mL Bolus, recheck BP in 1 hour. See above for information regarding anemia. Plan to check orthostatics with PT today. Patient will have BP meds held at discharge. Instructed to create BP log x1 week with home cuff and with assistance from home health. Patient needs follow up appt with her PCP for 1 week to reevaluate recommendations for BP medications. (5) Systemic lupus: Code(s): M32.9 - Systemic lupus erythematosus, unspecified Status: Acute Assessment and Plan: Will hold prednisone x3 weeks post op to ensure healing per Dr. Klein. Plaquenil resumed. (6) Rheumatoid arthritis: Code(s): M06.9 - Rheumatoid arthritis, unspecified Status: Acute Assessment and Plan: Will hold prednisone x3 weeks post op to ensure healing per Dr. Klein. Plaquenil resumed. (7) History of femoropopliteal bypass: Code(s): Z98.890 - Other specified postprocedural states Status: Acute Assessment and Plan: Changes to Xarelto dose per Dr. Klein (8) Peripheral vascular disease: Code(s): I73.9 - Peripheral vascular disease, unspecified Status: Acute Time Spent With Patient Time: Reviewed postoperative course with Dr. Klein. All recommendations as above. Dr. Klein has independently examined patient this AM per Dr. Klein. Subjective Subjective Date/Time Seen: 06/18/22 09:31 Post Op day: 2 Interval history: POD #2: Right TKA Patient with hypotension yesterday evening. Hospital consult requested by Dr. Klein. She recieved 1 unit of PRBCs over the night which was finished at 3:45 AM. She denies symptoms associated with low BP. Difficulty with pain control as her narcotics have been held due to low BP. Otherwise, no new concerns or symptoms reported today. Review of Systems Review of Systems: All systems reviewed & are unremarkable except as noted in HPI and below Constitutional: Constitutional: Denies fever(s) and Denies headache(s) ENT: Denies headache(s) Cardiovascular: Cardiovascular: Denies chest pain, Denies diaphoresis, Denies palpitations and Denies dyspnea Respiratory: Respiratory: Denies dyspnea Gastrointestinal: Gastrointesti
[2022-06-18] MEDS: SODIUM CHLORIDE 0.9% IV 500 ML IV CONT (10:29)
[2022-06-18 11:46] LABS: Hematocrit 26.9 % (37.0-47.0); Hemoglobin 8.3 g/dL (12.0-15.0); Mean Corpuscular HGB Conc 30.9 g/dl (32-36); Mean Corpuscular Hemoglobin 27.6 pg (26-34); Mean Corpuscular Volume 89.4 fl (80-100); Mean Platelet Volume 9.9 fl (7.4-10.4); Platelet Count Result 208 k/mm3 (150-375); Red Blood Count 3.01 M/mm3 (4.2-5.4); Red Cell Distribution Width 15.7 % (11.5-14.5); White Blood Count 12.5 K/mm3 (4.5-10.0)
[2022-06-18 12:21] LABS: Glucose Point of Care 93 mg/dl (65-105)
[2022-06-18] MEDS: GABAPENTIN 300 MG CAPSULE BY MOUTH (13:38)
--- NOTE | 2022-06-18 14:28 | PM.IMPN ---
Progress Note: A&P Assessment and Plan (1) Degenerative joint disease of right knee: Code(s): M17.11 - Unilateral primary osteoarthritis, right knee Status: Acute Assessment and Plan: Postoperative day 1 status post right total knee arthroplasty. Wound care, pain control, and DVT prophylaxis deferred to Dr. Klein. She is at high risk for DVT given history of venous thromboembolism an autoimmune disease. She is also on hormones. (2) Acute blood loss anemia: Code(s): D62 - Acute posthemorrhagic anemia Status: Acute Assessment and Plan: Patient had 650 cc blood loss during surgery. Her hemoglobin is 4.5 g lower than what it was on labs done several weeks ago. With her soft blood pressures and increasing creatinine, we will go ahead and transfuse a unit of packed red blood cells. Repeat hemoglobin after transfusion of 8.4. Trend H&H. Patient's Xarelto being held for now. Patient planned to go home on Xarelto 10 mg for a total of 7 days and resume 20 mg dose after that. H&H stable and patient is cleared to be discharged. Repeat CBC in a couple days. (3) Hypotension: Code(s): I95.9 - Hypotension, unspecified Status: Acute Assessment and Plan: Likely due to acute blood loss anemia. Holding antihypertensives for now. Patient receive one 500 mL bolus with a repeat blood pressure improved. Blood pressure stable after bolus. Recommend minimizing opioid use. (4) Renal failure: Code(s): N19 - Unspecified kidney failure Status: Acute Assessment and Plan: Creatinine is up a bit from baseline (0.90 --> 1.30) and may very well be related to hypoperfusion from hypovolemia and hypotension related to acute blood loss anemia. She is being transfused unit of packed red blood cells. Hold antihypertensives for now. Monitor I/O closely. 06/18/22 creatinine decreasing. Continue to hydrate. Repeat BMP in a couple days. (5) Hypertension: Code(s): I10 - Essential (primary) hypertension Status: Acute Assessment and Plan: Antihypertensives on hold as detailed above. (6) Type 2 diabetes mellitus: Code(s): E11.9 - Type 2 diabetes mellitus without complications Status: Inactive Assessment and Plan: Hemoglobin A1c was 5.4% today. Resume metformin on discharge. (7) Hypothyroidism: Code(s): E03.9 - Hypothyroidism, unspecified Status: Acute Assessment and Plan: Continue levothyroxine and check TSH. (8) Rheumatoid arthritis: Code(s): M06.9 - Rheumatoid arthritis, unspecified Status: Acute Assessment and Plan: Resume hydroxychloroquine. Time Spent With Patient Time with patient: 25 - 35 minutes Subjective Date/time seen: 06/18/22 14:28 Interval history: Patient doing well sitting up in bed. She has no symptoms of fatigue, shortness of breath, dizziness or lightheadedness. Patient working with PT and OT. She has no complaints at this time. Review of Systems Review of Systems: All systems reviewed & are unremarkable except as noted in HPI and below Objective Data Vital Signs Vital Signs: Vital Signs - 24 hr 06/17/22 16:35 06/17/22 22:59 06/18/22 00:39 Temperature 97.4 F L 99.1 F Pulse Rate 85 92 Respiratory Rate 18 20 Blood Pressure 74/50 L 91/50 L Pulse Oximetry 99 96 Oxygen Delivery Room Air 06/18/22 00:55 06/18/22 04:45 06/18/22 04:46 Temperature 97.5 F L 98.1 F 98.6 F Pulse Rate 91 89 79 Respiratory Rate 16 18 16 Blood Pressure 86/45 L 91/50 L 101/69 Pulse Oximetry 99 97 94 Oxygen Delivery 06/18/22 04:48 06/18/22 01:55 06/18/22 02:55 Temperature 98.0 F 98.0 F 98.3 F Pulse Rate 93 93 95 Respiratory Rate 16 16 16 Blood Pressure 90/54 L 90/54 L 95/57 L Pulse Oximetry 97 97 97 Oxygen Delivery 06/18/22 03:45 06/18/22 08:35 06/18/22 09:00 Temperature 98.7 F 98.6 F Pulse Rate 77 100 1
--- NOTE | 2022-06-18 14:56 | PM.DS ---
DS: Admitting Diagnosis Discharge Date 06/18/22 Admitting Diagnosis Right Knee DJD DS: Discharge Diagnosis Discharge Diagnosis Plan 52 year old female admitted s/p right TKA for postoperative medical management, pain control and mobilization with PT/OT. Patient progressed well with PT/OT. She required 2 NS Fluid Boluses and 1 unit of PRBCs during admission due to postoperative anemia and hypotension. The medicine team was consulted for assistance with care. Prior to discharge, her labs and vitals were stable. She have been cleared to be discharged home with home health at this time. We will hold her BP medication x1 week and she will follow up with her PCP with a blood pressure log Follow up planned for 3 weeks in the outpatient orthopedic clinic with Dr. Klein. DS: Summary Time Spent with Patient Time attestation: Total time spent providing and/or coordinating discharge services: DS: Data Data Completed and Pending Labs on day of discharge: Labs from last 24 hours 06/18/22 06/18/22 06/18/22 12:19 11:38 08:30 WBC 12.5 H RBC 3.01 L Hgb 8.3 L Hct 26.9 L MCV 89.4 MCH 27.6 MCHC 30.9 L RDW 15.7 H Plt Count 208 MPV 9.9 Sodium Potassium Chloride Carbon Dioxide Anion Gap BUN Creatinine Estim Creat Clear Calc Estimated GFR Glucose POC Capillary Glucose 93 92 Hemoglobin A1c Calcium Magnesium Total Bilirubin AST ALT Alkaline Phosphatase Total Protein Albumin Blood Type Antibody Screen Crossmatch 06/18/22 06/18/22 06/17/22 05:46 05:46 21:45 WBC 13.5 H RBC 2.97 L Hgb 8.4 L Hct 26.3 L MCV 88.6 MCH 28.3 MCHC 31.9 L RDW 15.3 H Plt Count 239 MPV 10.5 H Sodium 137 Potassium 4.4 Chloride 110 H Carbon Dioxide 25 Anion Gap 2 L BUN 23 H Creatinine 1.40 H Estim Creat Clear Calc 44 Estimated GFR 39 L Glucose 103 POC Capillary Glucose Hemoglobin A1c 5.4 Calcium 7.8 L Magnesium 1.7 Total Bilirubin 0.6 AST 20 ALT 9 Alkaline Phosphatase 72 Total Protein 5.0 L Albumin 2.7 L Blood Type Antibody Screen Crossmatch 06/17/22 06/17/22 06/17/22 21:45 21:45 17:16 WBC 17.8 H RBC 3.30 L Hgb 8.1 L 9.0 L Hct 26.2 L 29.9 L MCV 90.6 MCH 27.3 MCHC 30.1 L RDW 15.9 H Plt Count 358 MPV 10.6 H Sodium 137 Potassium 4.2 Chloride 108 H Carbon Dioxide 26 Anion Gap 3 L BUN 24 H Creatinine 1.50 H Estim Creat Clear Calc 41 Estimated GFR 36 L Glucose 95 POC Capillary Glucose Hemoglobin A1c Calcium 7.8 L Magnesium Total Bilirubin AST ALT Alkaline Phosphatase Total Protein Albumin Blood Type Antibody Screen Crossmatch 06/16/22 09:21 WBC RBC Hgb Hct MCV MCH MCHC RDW Plt Count MPV Sodium Potassium Chloride Carbon Dioxide Anion Gap BUN Creatinine Estim Creat Clear Calc Estimated GFR Glucose POC Capillary Glucose Hemoglobin A1c Calcium Magnesium Total Bilirubin AST ALT Alkaline Phosphatase Total Protein Albumin Blood Type A Positive Antibody Screen Negative Crossmatch See Detail Discharge Plan Discharge Attending physician on discharge: Saran Klein Consulting providers: Madison Reis Discharging Clinician: Eliza Vanessa Patient Disposition: Home Health Service Activity: may shower, no driving and as tolerated Diet: as tolerated Wound Care Instructions: follow printed instructions Discharge Instructions: Post Op Total Knee Replacement Instructions Dr. Saran Klein [phone] See PREVENA dressing instructions below. You may shower with your dressing but do not submerge in a bath tub. Do not drive or operate machinery until you are released by Dr. Klein. Do not walk without a walker for any reason unt
--- NOTE | 2022-06-18 15:04 | PM.DS ---
DS: Admitting Diagnosis Discharge Date 06/18/22 Admitting Diagnosis Right Knee DJD DS: Discharge Diagnosis Discharge Diagnosis Plan (1) S/P total knee arthroplasty: ?Code(s): Z96.659 - Presence of unspecified artificial knee joint ?Status:?Acute ?Assessment and Plan: POD #2 : Right TKA Continue PT/OT. WBAT. Walker. HIGH FALL RISK. Continue pain control. Ice Knee. Protect skin. DVT prophylaxis with Xarelto 10mg. Plan to maintain 10mg dose x7 days post op and then resume 20mg dose per Dr. Klein. Repeat CBC at 12:00 PM today and then again on Tuesday by HH. SCDs. Incentive Spirometry Use reviewed. Monitor Dressing. Prevena dressing in place. Drain pulled. Bowel Regimen. Dispo: Home with Home Health pending medical stability and clearance. (2) Acute blood loss anemia: ?Code(s): D62 - Acute posthemorrhagic anemia ?Status:?Acute ?Assessment and Plan: Patient received 1 unit of PRBCs overnight. Repeat H/H is 8.4 s/p transfusion. Will repeat CBC at 12:00 PM today. If stable, no further recommendations during inpatient hospitalization. Will also plan for repeat CBC by home health on Tuesday. Xarelto 20mg HELD as of now. Patient will go home on current dose of Xarelto 10mg x7 days and resume 20mg dose on 06/[address] Klein. (3) JANAE (acute kidney injury): ?Code(s): N17.9 - Acute kidney failure, unspecified ?Status:?Acute ?Assessment and Plan: Creatinine elevated post operatively. Patient did receive a 500mL bolus yesterday due to hypotension. Consulted with hospitalist service this morning who recommended a repeat bolus as patient does still have hypotension. Will recheck BP 1 hour s/p bolus. (4) Hypotension: ?Code(s): I95.9 - Hypotension, unspecified ?Status:?Acute ?Assessment and Plan: Patient continues to have asymptomatic hypotension. Repeat 500mL Bolus, recheck BP in 1 hour. See above for information regarding anemia. Plan to check orthostatics with PT today. Patient will have BP meds held at discharge. Instructed to create BP log x1 week with home cuff and with assistance from home health. Patient needs follow up appt with her PCP for 1 week to reevaluate recommendations for BP medications. (5) Systemic lupus: ?Code(s): M32.9 - Systemic lupus erythematosus, unspecified ?Status:?Acute ?Assessment and Plan: Will hold prednisone x3 weeks post op to ensure healing per Dr. Klein. Plaquenil resumed. (6) Rheumatoid arthritis: ?Code(s): M06.9 - Rheumatoid arthritis, unspecified ?Status:?Acute ?Assessment and Plan: Will hold prednisone x3 weeks post op to ensure healing per Dr. Klein. Plaquenil resumed. (7) History of femoropopliteal bypass: ?Code(s): Z98.890 - Other specified postprocedural states ?Status:?Acute ?Assessment and Plan: Changes to Xarelto dose per Dr. Klein (8) Peripheral vascular disease: ?Code(s): I73.9 - Peripheral vascular disease, unspecified ?Status:?Acute Time Spent With Patient Time: Reviewed postoperative course with Dr. Klein. All recommendations as above. Dr. Klein has independently examined patient this AM per Dr. Klein. DS: Summary Hospital Course Reason for hospitalization: Right TKA Hospital Course: 52 year old female admitted s/p right TKA for postoperative medical management, pain control and mobilization with PT/OT. Patient progressed well with PT/OT. She required 2 NS Fluid Boluses and 1 unit of PRBCs during admission due to postoperative anemia and hypotension. The medicine team was consulted for assistance with care. Prior to discharge, her labs and vitals were stable. She have been cleared to be discharged home with home health at this time. We will hold her BP medication x1 week and she will follow up with her PCP with a blood pressure log. Her dose of Xarelto will be decreased to 10mg x1 week as well per Dr. Klein. Her prednisone will also be on hold x3 weeks. Advised against use
[2022-06-18] MEDS: RIVAROXABAN 10 MG TABLET PO (16:54)
[2022-06-18 17:11] LABS: Glucose Point of Care 85 mg/dl (65-105)
== END 2022-06-18 18:04 | disposition home health service (06) ==
LOC: ANHSURGERY 14:42 → ANH2MED 14:42
PROVIDERS: Nurse Practitioner Family; Physician Assistant; Admitting Provider Orthopaedic Surgery; PCP Family Medicine; Visit Provider Orthopaedic Surgery
PROC: (CPT 27447; principal; 2022-06-16 10:30)
DX: M17.11 Unilateral primary osteoarthritis, right knee (principal); D62 Acute posthemorrhagic anemia; I95.9 Hypotension, unspecified; N19 Unspecified kidney failure; I10 Essential (primary) hypertension; E03.9 Hypothyroidism, unspecified; E11.9 Type 2 diabetes mellitus without complications; E78.5 Hyperlipidemia, unspecified; K21.9 Gastro-esophageal reflux disease without esophagitis; Z86.718 Personal history of other venous thrombosis and embolism; Z86.711 Personal history of pulmonary embolism; M32.9 Systemic lupus erythematosus, unspecified; M06.9 Rheumatoid arthritis, unspecified; I73.9 Peripheral vascular disease, unspecified
CPT/HCPCS: 27447; 36415; 36430; 73560; 80048; 80053; 80307; 81001; 82040; 82948; 83036; 83735; 85014; 85018; 85025; 85027; 85610; 85730; 86850; 86900; 86901; 86923; 87081; 97110; 97116; 97161; 97165; 97530; 97535; A9270; C1713; C1776; G0378; G0379; J0171; J0690; J1100; J1170; J1200; J1885; J2250; J2270; J2405; J2704; J2795; J3010; J7030; J7040; J7050; J7120; P9016

== ENCOUNTER 2022-06-21 11:27 | Outpatient (NON) | payer MEDICARE, MEDICAID, SELFPAY ==
[2022-06-21 12:35] LABS: Hematocrit 32.6 % (37.0-47.0); Mean Corpuscular HGB Conc 30.7 g/dl (32-36); Mean Corpuscular Hemoglobin 27.7 pg (26-34); Mean Corpuscular Volume 90.3 fl (80-100); Mean Platelet Volume 11.5 fl (7.4-10.4); Platelet Count Result 369 k/mm3 (150-375); Red Blood Count 3.61 M/mm3 (4.2-5.4); White Blood Count 11.7 K/mm3 (4.5-10.0)
[2022-06-21 12:48] LABS: Anion Gap 11 mmol/L (8-16); Blood Urea Nitrogen 12 mg/dL (7-17); Calcium 8.9 mg/dL (8.4-10.2); Carbon Dioxide 27 mmol/L (22-30); Chloride 96 mmol/L (98-107); Estimated Glomerular Filt Rate 52; Glucose 101 mg/dL (65-110); Potassium 4.1 mmol/L (3.4-5.0); Sodium 134 mmol/L (137-145)
== END 2022-06-21 11:28 | disposition home or self-care (01) ==
LOC: HOME HLTH 11:29
PROVIDERS: PCP Family Medicine; Visit Provider Nurse Practitioner Family
DX: D62 Acute posthemorrhagic anemia (principal); N17.9 Acute kidney failure, unspecified
CPT/HCPCS: 80048; 85027

== ENCOUNTER 2022-06-24 14:45 | Outpatient (CLI) | payer MEDICARE, MEDICAID, SELFPAY ==
--- NOTE | ~2022-06-24 | US_ITS ---
EXAMINATION:US venous doppler LE BI INDICATION:Right leg pain TECHNIQUE: Multiple grayscale, color flow and Doppler images of the right and left lower extremity de ep venous systems were obtained and reviewed. COMPARISON:No prior studies for comparison. FINDINGS: The right common femoral, superficial femoral and popliteal veins demonstrate normal respir atory variation, augmentation and compressibility. Color flow is also seen within the posterior tibi al, peroneal, greater saphenous and profunda veins. There is partially occlusive deep venous thrombosis of the left common femoral vein. The remainder of the left lower extremity veins are patent. There are bilateral Soares's cysts. IMPRESSION: 1: Partially occlusive deep venous thrombosis of the left common femoral vein. Reviewed, dictated and finalized at location A. [employer]
== END 2022-06-24 14:46 | disposition home or self-care (01) ==
LOC: ANHIMG 14:47
PROVIDERS: PCP Family Medicine; Visit Provider Nurse Practitioner Family
DX: M79.652 Pain in left thigh (principal); M79.651 Pain in right thigh; I82.412 Acute embolism and thrombosis of left femoral vein
CPT/HCPCS: 93970

== ENCOUNTER 2022-10-25 07:12 | Outpatient (CLI) | payer MEDICARE, MEDICAID, SELFPAY ==
[2022-10-25 07:49] LABS: Basophils Percent Auto 0.4 % (0.2-1.2); Eosinophils Absolute Auto 0.4 K/mm3 (0-0.3); Eosinophils Percent Auto 4.1 % (0-4.4); Hematocrit 40.3 % (37.0-47.0); Hemoglobin 12.4 g/dL (12.0-15.0); Immature Granulocyte Absolute 0.05 K/mm3 (0.00-0.031); Immature Granulocyte Percent A 0.5 % (0-0.5); Lymphocytes Percent Auto 11.5 % (18.3-44.2); Mean Corpuscular HGB Conc 30.8 g/dl (32-36); Mean Corpuscular Hemoglobin 25.6 pg (26-34); Mean Corpuscular Volume 83.3 fl (80-100); Mean Platelet Volume 10.2 fl (7.4-10.4); Monocytes Absolute Auto 0.9 K/mm3 (0.1-0.6); Monocytes Percent Auto 8.4 % (2.6-8.5); Neutrophils Absolute Auto 7.8 K/mm3 (1.3-6.7); Neutrophils Percent Auto 75.1 % (45.5-73.1); Platelet Count Result 328 k/mm3 (150-375); Red Blood Count 4.84 M/mm3 (4.2-5.4); Red Cell Distribution Width 19.2 % (11.5-14.5); White Blood Count 10.4 K/mm3 (4.5-10.0)
[2022-10-25 07:56] LABS: Appearance Urine Clear (Clear); Bacteria Urine None Seen /hpf; Bilirubin Urine Negative (Negative); Blood Urine Negative (Negative); Color Urine Yellow (Yellow); Glucose Urine UA Negative (Negative); Ketones Urine Negative (Negative); Leukocyte Esterase Ur 1+ LEU/UL (Negative); Nitrate Urine Negative (Negative); Non Pathogenic Casts 0-2; Protein Urine Negative (Negative); RBC Urine 0-2 /hpf (0-2); Specific Grav Ur 1.013 (1.001-1.035); Squamous Epithelial Cell Urine Occasional /hpf (Few); Urobilinogen Urine 0.2 mg/dL (<2.0); pH Urine 5.5 (5.0-9.0)
[2022-10-25 08:12] LABS: Add Urine Microscopic? YES
[2022-10-25 08:27] LABS: Alanine Aminotransferase 22 U/L (6-35); Albumin Level 3.9 g/dL (3.5-5.1); Alkaline Phosphatase 112 U/L (38-126); Anion Gap 3 mmol/L (8-16); Aspartate Amino Transferase 23 U/L (14-36); Bilirubin,Total 0.6 mg/dL (0.2-1.3); Blood Urea Nitrogen 14 mg/dL (7-17); CRP 4.9 mg/dL (<1.0); Carbon Dioxide 29 mmol/L (22-30); Chloride 107 mmol/L (98-107); Creatine Kinase 38 U/L (30-135); Estimated Glomerular Filt Rate 58; Glucose 91 mg/dL (65-110); Potassium 4.1 mmol/L (3.4-5.0); Sodium 139 mmol/L (137-145); Uric Acid 7.3 mg/dL (2.5-7.5)
[2022-10-25 08:30] LABS: Complement C3 134 mg/dL (88-165); Rheumatoid Factor 20.9 IU/ML (<12)
[2022-10-25 09:07] LABS: Erythrocyte Sedimentation Rate 18 mm/hr (0-20)
[2022-10-27 23:06] LABS: Anti Cyclic Citrullinated Pept 212 Units (<20)
[2022-10-28 16:51] LABS: SS-A <1.0; SS-B <1.0
[2022-10-29 08:47] LABS: SM Antibody <1.0; SM/RNP Antibody <1.0
[2022-10-29 11:11] LABS: Aldolase 4.9 U/L (<=8.1)
[2022-10-29 13:47] LABS: Anti Nuclear Antibody Titer 1:40 (Negative)
[2022-10-29 20:18] LABS: Lupus dRVVT Screen 38 sec (<=45); PTT-LA Screen 33 sec (<=40)
[2022-11-05 14:58] LABS: Lupus dRVVT Additional Testing Not Indicated
== END 2022-10-25 07:13 | disposition home or self-care (01) ==
PROVIDERS: PCP Family Medicine; Visit Provider Internal Medicine
DX: M06.9 Rheumatoid arthritis, unspecified (principal); M19.90 Unspecified osteoarthritis, unspecified site
CPT/HCPCS: 36415; 80053; 81001; 82085; 82306; 82550; 84550; 85025; 85613; 85652; 85730; 86038; 86039; 86140; 86160; 86200; 86225; 86235; 86430; 87086; 87088